=== PATIENT | female | born 1940 | race African-American/Black ===

== ENCOUNTER 2016-07-18 17:52 | Observation (INO) | payer MEDICARE ==
[~2016-07-18] VITALS: Ht 162.6 cm; Wt 81.2 kg
[2016-07-18] MEDS: VANCOMYCIN 1 G PREMIX 200 ML IV SCH (11:29)
[~2016-07-18 17:52] MED LIST: AMLO10TA80 PO; ATOR20TA PO; BRIM5DRO LEFTEYE; DORZ10DR9 EACHEYE; LATA2.5D2 LEFTEYE; LOSA50TA3 PO; [UNRECOGNIZED DRUG - CODE] PO
[2016-07-18 19:41] LABS: HEMATOCRIT. 29.2 % (36.0-48.0); HEMOGLOBIN. 9.6 g/dL (12.0-16.0); MEAN CORPUSCULAR HEMOGLOBIN 31.5 pg (28.0-32.0); MEAN CORPUSCULAR VOLUME 95.6 fL (81.0-99.0); MEAN PLATELET VOLUME 9.3 fl (7.4-10.4); PLATELET 162 x1000/uL (130-400); RED BLOOD CELL COUNT 3.05 mill/uL (4.2-5.4); RED CELL DISTRIBUTION WIDTH 14.7 % (11.6-14.6); WHITE BLOOD COUNT 6.2 x1000/uL (4.5-11.0)
[2016-07-18 19:44] LABS: INR 1.1; PROTHROMBIN TIME 11.4 sec
[2016-07-18 19:46] LABS: DIFFERENTIAL COMMENT 1
[2016-07-18 19:54] LABS: ALANINE AMINOTRANSFERASE 15 IU/L (13-61); ALBUMIN 3.2 g/dL (3.4-5.0); ANION GAP 15; CALCIUM 7.8 mg/dL (8.5-10.1); CARBON DIOXIDE 25 mEq/L (21-32); CHLORIDE 105 mEq/L (98-107); INDEX HEMOLYSI 1 (1-3); INDEX ICTERIC 1 (1-4); INDEX LIPEMIC 1 (1-3); LIPASE 422 IU/L (73-393); MAGNESIUM 2.5 mg/dL (1.8-2.4); PHOSPHORUS 6.7 mg/dL (2.5-4.9); TROPONIN I 0.08 ng/mL (0.00-0.04); UREA NITROGEN BLOOD 75 mg/dL (7-21); eGFR 5 mL/min (>60)
[2016-07-18 20:13] LABS: PLATELET ESTIMATE NORMAL
[2016-07-18] MEDS ORDERED: SODIUM POLYSTYRENE SULFONATE 15 G/60 ML BOT PO ONE (23:45)
[2016-07-19 00:25] LABS: BG BASE EXCESS -5.7 mmol/L (-2.0-2.0); BG CARBOXYHEMOGLOBIN 0.7 % (0.5-1.5); BG DEOXYHEMOGLOBIN 3.3 % (0.0-5.0); BG FRACTION INSPIRED OXYGEN 21; BG HCO3 ACT 18.8 mmol/L (22.0-26.0); BG METHEMOGLOBIN 0.3 % (0.0-1.5); BG OXYGEN SATURATION 96.7 % (92.0-98.5); BG OXYHEMOGLOBIN 95.7 % (94.0-97.0); BG PCO2 33.5 mmHg (35.0-45.0); BG PH 7.367 (7.350-7.450); BG PO2 100.2 mmHg (75.0-100.0); BG SAMPLE SITE RIGHT BRACHIAL; BG TOTAL HEMOGLOBIN 11.8 g/dL (12.0-18.0); BG VENT MODE ROOM AIR
[2016-07-19] MEDS ORDERED: ACETAMINOPHEN 325MG TABLET PO PRN ×2 (07:30→15:15)
[2016-07-19] MEDS: VANCOMYCIN 1 G PREMIX 200 ML IV SCH (11:45)
[2016-07-19 13:15] VITALS: BP 163/86
[2016-07-19 13:20] VITALS: BP 163/86
[2016-07-19] MEDS ORDERED: CLONIDINE 0.1MG TABLET PO PRN (15:15)
[2016-07-19] MEDS: AMLODIPINE 10MG TABLET PO SCH ×2 (15:15→20:32)
[2016-07-19] MEDS ORDERED: HYDROCODONE/ACETAMINOPHEN 5/325MG TABLET PO PRN (15:15)
[2016-07-19] MEDS ORDERED: ONDANSETRON HCL 4MG/2ML VIAL IV PRN (15:15)
[2016-07-19] MEDS ORDERED: IPRATROPIUM/ALBUTEROL 0.5-3(2.5)MG/3ML NEB INH PRN (15:15)
[2016-07-19 16:00] VITALS: BP 153/83
[2016-07-19] MEDS ORDERED: ENOXAPARIN 30MG/0.3ML SYR SUBCUT SCH (16:00)
[2016-07-19] MEDS ORDERED: DEXTROSE 50% WATER 50ML SYRINGE IV PRN (16:15)
[2016-07-19] MEDS ORDERED: DORZOLAM/TIMOLOL 2.23/0.68% OPHTH DROPS 10ML EACHEYE SCH (17:00)
[2016-07-19] MEDS: INSULIN LISPRO 100 UNITS/ML SUBCUT SCH ×2 (17:36→22:10)
[2016-07-19] MEDS: BLOOD SUGAR DIAGNOSTIC STRIP TEST SCH ×2 (17:36→21:00)
[2016-07-19 19:38] LABS: CALCIUM 8.2 mg/dL (8.5-10.1)
[2016-07-19 20:00] VITALS: BP 152/75
[2016-07-19] MEDS ORDERED: ATORVASTATIN CALCIUM 20MG TABLET PO SCH (21:00)
[2016-07-19] MEDS ORDERED: LATANOPROST 0.005% OPHTH DROPS 2.5ML LEFTEYE SCH (21:00)
[2016-07-19] MEDS ORDERED: LOSARTAN POTASSIUM 50 MG TABLET PO SCH (21:00)
[2016-07-19] MEDS ORDERED: HYDRALAZINE HCL 100MG TABLET PO SCH (22:00)
[2016-07-19 23:23] LABS: TROPONIN I 0.08 ng/mL (0.00-0.04)
[2016-07-19 23:25] VITALS: BP 130/66
[2016-07-20 00:15] VITALS: BP 130/66
== END 2016-07-20 00:35 | disposition short-term general hospital (02) ==
LOC: ER 19:04 → 6WST 22:13 → INTOOBSV 22:13
PROVIDERS: ADMIT Internal Medicine; ATTEND Internal Medicine
DX: T82.41XA Breakdown (mechanical) of vascular dialysis catheter, initial encounter (principal); T82.818A Embolism due to vascular prosthetic devices, implants and grafts, initial encounter; N18.6 End stage renal disease; N17.9 Acute kidney failure, unspecified; I12.0 Hypertensive chronic kidney disease with stage 5 chronic kidney disease or end stage renal disease; E11.22 Type 2 diabetes mellitus with diabetic chronic kidney disease; Z82.49 Family history of ischemic heart disease and other diseases of the circulatory system; Y83.2 Surgical operation with anastomosis, bypass or graft as the cause of abnormal reaction of the patient, or of later complication, without mention of misadventure at the time of the procedure; Z99.2 Dependence on renal dialysis; Z95.0 Presence of cardiac pacemaker; J98.11 Atelectasis; J44.9 Chronic obstructive pulmonary disease, unspecified; E87.5 Hyperkalemia; Z86.73 Personal history of transient ischemic attack (TIA), and cerebral infarction without residual deficits; Y71.2 Prosthetic and other implants, materials and accessory cardiovascular devices associated with adverse incidents; Y83.8 Other surgical procedures as the cause of abnormal reaction of the patient, or of later complication, without mention of misadventure at the time of the procedure; D64.9 Anemia, unspecified
CPT/HCPCS: 36415; 36556; 36600; 71010; 76937; 77001; 80048; 80053; 82375; 82550; 82805; 82962; 83605; 83690; 83735; 84100; 84484; 85025; 85610; 86850; 86900; 86901; 87040; 87070; 87205; 93005; 96365; 96372; 99285; C1752; C1887; G0378; J1815; J3370; J7030

== ENCOUNTER 2016-10-02 04:58 | Emergency (ER) | payer MEDICARE ==
[~2016-10-02] VITALS: Ht 167.6 cm; Wt 72.0 kg
[2016-10-02] VITALS (7 sets, daily range): BP systolic 166–183; BP diastolic 57–86
[~2016-10-02 04:58] MED LIST changes: +HYDR100T31 PO; -[UNRECOGNIZED DRUG - CODE] PO
[2016-10-02 07:30] LABS: HEMATOCRIT. 31.2 % (36.0-48.0); HEMOGLOBIN. 9.9 g/dL (12.0-16.0); MEAN CORPUSCULAR HEMOGLOBIN 28.9 pg (28.0-32.0); MEAN PLATELET VOLUME 7.5 fl (7.4-10.4); PLATELET 291 x1000/uL (130-400); RED BLOOD CELL COUNT 3.43 mill/uL (4.2-5.4); RED CELL DISTRIBUTION WIDTH 16.8 % (11.6-14.6)
[2016-10-02 07:36] LABS: INR 1.1; PROTHROMBIN TIME 11.4 sec
[2016-10-02 07:40] LABS: CARBON DIOXIDE 23 mEq/L (21-32); CHLORIDE 101 mEq/L (98-107)
[2016-10-02 07:45] LABS: TROPONIN I 0.11 ng/mL (0.00-0.04)
[2016-10-02 07:55] LABS: PLATELET ESTIMATE NORMAL
[2016-10-02] MEDS ORDERED: SODIUM BICARBONATE 4% (2.4MEQ) 5ML VIAL IV ONE (08:55)
[2016-10-02] MEDS ORDERED: LIDOCAINE HCL 1% 20ML VIAL (Pyxis) INJ ONE (08:55)
[2016-10-02] MEDS ORDERED: CEFAZOLIN 1000MG PREMIX 50 ML IV ONE ×2 (09:08→09:45)
[2016-10-02] MEDS ORDERED: FENTANYL CITRATE/PF 50MCG/ML 2ML VIAL ONE (09:09)
[2016-10-02] MEDS ORDERED: DIPHENHYDRAMINE 50MG/ML VIAL ONE (09:23)
[2016-10-02] MEDS ORDERED: DIPHENHYDRAMINE 50MG/ML VIAL IV ONE (09:45)
[2016-10-02] MEDS ORDERED: FENTANYL CITRATE/PF 50MCG/ML 2ML VIAL IV ONE (09:45)
== END 2016-10-02 15:47 | disposition home or self-care (01) ==
LOC: ER 04:59
DX: Z99.2 Dependence on renal dialysis (principal); Z88.0 Allergy status to penicillin; Z88.6 Allergy status to analgesic agent; Z79.899 Other long term (current) drug therapy; E11.29 Type 2 diabetes mellitus with other diabetic kidney complication; I13.10 Hypertensive heart and chronic kidney disease without heart failure, with stage 1 through stage 4 chronic kidney disease, or unspecified chronic kidney disease; N18.9 Chronic kidney disease, unspecified
CPT/HCPCS: 36415; 36558; 71010; 76937; 77001; 80053; 83605; 84484; 85025; 85610; 93005; 96365; 96375; 99285; C1750; J0690; J1200; J1642; J3010; J3490; J7050

== ENCOUNTER 2016-11-20 15:58 | Emergency (ER) | payer MEDICARE ==
[~2016-11-20] VITALS: Ht 162.6 cm; Wt 75.0 kg
[2016-11-20] MEDS ORDERED: HYDROCODONE/ACETAMINOPHEN 5/325MG TABLET PO STA (16:30)
[2016-11-20 16:51] LABS: BASOPHILS % 2.1 % (0.0-2.0); EOSINOPHILS % 3.5 % (0.0-5.0); HEMATOCRIT. 38.5 % (36.0-48.0); HEMOGLOBIN. 12.6 g/dL (12.0-16.0); LYMPHOCYTES % 22.3 % (20.0-50.0); MEAN CORPUSCULAR HEMOGLOBIN 28.9 pg (28.0-32.0); MEAN CORPUSCULAR VOLUME 88.6 fL (81.0-99.0); MEAN PLATELET VOLUME 9.1 fl (7.4-10.4); NEUTROPHILS % 62.1 % (40.0-76.0); PLATELET 155 x1000/uL (130-400); RED BLOOD CELL COUNT 4.34 mill/uL (4.2-5.4); RED CELL DISTRIBUTION WIDTH 16.8 % (11.6-14.6)
[2016-11-20 16:54] LABS: INR 1.1; PROTHROMBIN TIME 11.4 sec
[2016-11-20 17:04] LABS: CARBON DIOXIDE 29 mEq/L (21-32); CHLORIDE 97 mEq/L (98-107)
[2016-11-20] MEDS ORDERED: POTASSIUM CHLORIDE 20MEQ TABLET SR PO ONE (17:30)
[2016-11-20 19:25] VITALS: BP 125/58
== END 2016-11-20 20:45 | disposition home or self-care (01) ==
LOC: ER 16:21
DX: S80.11XA Contusion of right lower leg, initial encounter (principal); I12.0 Hypertensive chronic kidney disease with stage 5 chronic kidney disease or end stage renal disease; N18.6 End stage renal disease; E87.6 Hypokalemia; E11.22 Type 2 diabetes mellitus with diabetic chronic kidney disease; Z88.0 Allergy status to penicillin; Z88.5 Allergy status to narcotic agent
CPT/HCPCS: 36415; 73590; 80053; 85025; 85610; 99285

== ENCOUNTER 2017-05-11 09:57 | Emergency (ER) | payer MEDICARE, OTHER ==
[~2017-05-11] VITALS: Ht 162.6 cm; Wt 62.0 kg
[2017-05-11] MEDS ORDERED: KETOROLAC 30MG/ML VIAL IV ONE (11:00)
[2017-05-11 11:17] LABS: HEMATOCRIT. 34.2 % (36.0-48.0); MEAN CORPUSCULAR HEMOGLOBIN 28.3 pg (28.0-32.0); MEAN CORPUSCULAR VOLUME 88.1 fL (81.0-99.0); MEAN PLATELET VOLUME 7.8 fl (7.4-10.4); PLATELET 181 x1000/uL (130-400); RED BLOOD CELL COUNT 3.89 mill/uL (4.2-5.4); RED CELL DISTRIBUTION WIDTH 20.2 % (11.6-14.6)
[2017-05-11 11:24] LABS: CHLORIDE 103 mEq/L (98-107)
[2017-05-11 11:27] LABS: INR 1.2; PARTIAL THROMBOPLASTIN TIME 31.7 sec (23.4-31.0); PROTHROMBIN TIME 12.1 sec (9.4-11.6)
[2017-05-11 11:32] LABS: CARBON DIOXIDE 23 mEq/L (21-32)
[2017-05-11] MEDS ORDERED: TETRACAINE 0.5% OPHTH DROPS 4ML RIGHTEYE ONE (12:00)
[2017-05-11 12:44] LABS: NUCLEATED RED BLOOD CELLS 1 /100 WBC; PLATELET ESTIMATE NORMAL
[2017-05-11] MEDS ORDERED: MORPHINE SULFATE 10 MG/ML CPJ IM ONE (15:15)
[2017-05-11 15:54] VITALS: BP 157/83
== END 2017-05-11 15:58 | disposition home or self-care (01) ==
LOC: ER 11:01
DX: R51 Headache (principal); I10 Essential (primary) hypertension; E11.9 Type 2 diabetes mellitus without complications; H40.9 Unspecified glaucoma; H54.62 Unqualified visual loss, left eye, normal vision right eye; R11.0 Nausea; Z88.0 Allergy status to penicillin; Z99.2 Dependence on renal dialysis; Z99.3 Dependence on wheelchair; Z88.5 Allergy status to narcotic agent
CPT/HCPCS: 36415; 70450; 80053; 82962; 85025; 85610; 85730; 93005; 96372; 96374; 99285; J1885; J2270